=== PATIENT | male | born 1975 | race African-American/Black ===

== ENCOUNTER 2023-12-16 10:15 | Inpatient (IN) | payer OTHER ==
[2023-12-16] MEDS: ONDANSETRON *ODT* 4 MG TABLET SL PRN (03:00)
[2023-12-16 11:15] VITALS: BMI 25.7
[2023-12-16] MEDS ORDERED: DICYCLOMINE HCL 10 MG CAPSULE PO PRN (13:19)
[2023-12-16] MEDS ORDERED: guaiFENesin 600 MG TABLET.ER (FP) PO PRN (13:19)
[2023-12-16] MEDS ORDERED: ACETAMINOPHEN 325 MG TABLET (FP) PO PRN (13:19)
[2023-12-16] MEDS ORDERED: MAGNESIUM HYDROX 2400MG/30ML ORAL SUSPENSION 30 ML CUP PO PRN (13:19)
[2023-12-16] MEDS ORDERED: BENZOCAINE/MENTHOL (CHLORASEPTIC ) LOZENGE MM PRN (13:19)
[2023-12-16] MEDS ORDERED: NALOXONE HCL 0.4 MG/ML VIAL IM PRN (13:19)
[2023-12-16] MEDS ORDERED: POLYETHYLENE GLYCOL (HEALTHYLAX) 3350 17 GM PACKET PO PRN (13:19)
[2023-12-16] MEDS ORDERED: IBUPROFEN 400 MG TABLET (FP) PO PRN (13:19)
[2023-12-16] MEDS ORDERED: IBUPROFEN 600 MG TABLET (FP) PO PRN (13:19)
[2023-12-16] MEDS ORDERED: MAG HYDROX/AL HYDROX/SIMETH 30 ML UNIT-DOSE CUP PO PRN (13:19)
[2023-12-16] MEDS ORDERED: LOPERAMIDE HCL 2 MG CAPSULE PO PRN (13:19)
[2023-12-16] MEDS ORDERED: NALOXONE HCL (KLOXXADO) 8 MG SPRAY NS PRN (13:19)
[2023-12-16] MEDS ORDERED: BISMUTH SUBSALICYLATE 262 MG/15 ML BTL PO PRN (13:19)
[2023-12-16] MEDS ORDERED: BENZONATATE 200 MG CAPSULE PO PRN (13:19)
[2023-12-16] MEDS ORDERED: chlordiazePOXIDE HCL 25 MG CAPSULE PO PRN (13:23)
[2023-12-16] MEDS ORDERED: ONDANSETRON *ODT* 4 MG TABLET ONE (15:07)
[2023-12-16] MEDS: chlordiazePOXIDE HCL 25 MG CAPSULE PO SCH (17:27)
[2023-12-16] MEDS: MELATONIN 5 MG TABLETS PO SCH (22:29)
[2023-12-16] MEDS: METHOCARBAMOL 500 MG TABLET PO PRN (22:30)
[2023-12-16] MEDS: THIAMINE HCL 100 MG TABLET (FP) PO SCH (22:30)
[2023-12-17] MEDS: PRENATAL VITAMINS W/ FOLIC ACID TABLET (FP) PO SCH (10:34)
[2023-12-17] MEDS: amLODIPine BESYLATE 5 MG TABLET (FP) PO SCH (10:34)
[2023-12-17] MEDS: NICOTINE 21 MG/24 HOURS TOPICAL PATCH TD SCH (10:36)
[2023-12-17 12:04] LABS: HEMATOCRIT 36.8 % (35.4-49); HEMOGLOBIN 12.1 GM/dL (11.7-16.9); MCH 29.5 pg (25.7-33.7); MEAN CELL VOLUME 89.5 fl (80-96); MEAN PLT VOLUME 9.3 fl (7.5-11.1); PLATELET COUNT 271 10^3/uL (134-434); RBC 4.11 M/mm3 (4.00-5.60); RDW 16.6 % (11.9-15.9); WHITE BLOOD COUNT 7.6 K/mm3 (4.0-10.0)
[2023-12-17 12:06] LABS: CALCIUM 9.6 mg/dL (8.5-10.1); POTASSIUM 3.4 mmol/L (3.5-5.1)
[2023-12-17 12:07] LABS: ALBUMIN 3.4 g/dl (3.4-5.0); BLOOD UREA NITROGEN 9.2 mg/dL (7-18)
[2023-12-17 12:11] LABS: BILIRUBIN,TOTAL 0.5 mg/dL (0.2-1); TOT PROT 7.5 g/dl (6.4-8.2)
[2023-12-17 12:55] LABS: HIV INTERPRETATION NEGATIVE (NEGATIVE)
[2023-12-18] MEDS: chlordiazePOXIDE HCL 25 MG CAPSULE PO SCH (05:42)
[2023-12-19] MEDS ORDERED: chlordiazePOXIDE HCL 10 MG CAPSULE PO PRN
[2023-12-19] MEDS: chlordiazePOXIDE HCL 10 MG CAPSULE PO SCH (05:51)
[2023-12-19] MEDS: hydrOXYzine PAMOATE 25 MG CAPSULE (FP) PO PRN (05:59)
[2023-12-19] MEDS: NICOTINE POLACRILEX 2 MG GUM BUC PRN (06:00)
[2023-12-20] MEDS: chlordiazePOXIDE HCL 10 MG CAPSULE PO SCH (05:43)
[2023-12-21] MEDS: chlordiazePOXIDE HCL 10 MG CAPSULE PO ONE (05:47)
[2023-12-21 07:09] VITALS: BP 146/95; PULSE 73; RESP 18; TEMP 97.7
== END 2023-12-21 09:30 | disposition home or self-care (01) | DRG 775 ==
LOC: YASAS 10:15 → Y6N 14:36
PROVIDERS: ADMIT Allergy & Immunology; ATTEND Surgery
PROC: HZ2ZZZZ Detoxification Services for Substance Abuse Treatment (ICD-10-PCS; principal; 2023-12-16)
DX: F10.230 Alcohol dependence with withdrawal, uncomplicated (principal); F12.20 Cannabis dependence, uncomplicated; F17.210 Nicotine dependence, cigarettes, uncomplicated; E87.6 Hypokalemia; I10 Essential (primary) hypertension; Z28.310 Unvaccinated for COVID-19; Z28.9 Immunization not carried out for unspecified reason; Z59.00 Homelessness unspecified
CPT/HCPCS: 36415; 80053; 80305; 80307; 85027; 86780; 87389; 93005; 93010; Q0162